=== PATIENT | male | born 1965 | race Two or more races ===

== ENCOUNTER 2020-02-06 01:23 | Emergency (ER) | payer OTHER ==
[~2020-02-06] VITALS: Ht 177.8 cm; Wt 81.6 kg
[2020-02-06 01:30] VITALS: BP 139/92
[2020-02-06] MEDS ORDERED: XIFAXAN550 MG ORAL (01:37)
[2020-02-06] MEDS ORDERED: ZOFRAN4 M1 ORAL (01:37)
[2020-02-06] MEDS ORDERED: NEXIUM I.V.40 MG IV (01:37)
[2020-02-06] MEDS ORDERED: PROPRANOLOL HCL20 MG ORAL (01:37)
[2020-02-06] MEDS ORDERED: LACTULOSE10 GM/153 PO (01:37)
[2020-02-06] MEDS ORDERED: SPIRONOLACTONE100 MG ORAL (01:37)
[2020-02-06] MEDS ORDERED: CALCIUM CARBON500 M1 PO (01:37)
[2020-02-06] MEDS ORDERED: FUROSEMIDE20 M1 ORAL (01:37)
[2020-02-06] MEDS ORDERED: MAGNESIUM OXID400 M1 ORAL (01:37)
--- NOTE | 2020-02-06 01:44 | Emergency Room Report ---
History of Present Illness General Chief Complaint: Altered Mental Status Source: Family Member, EMS Present Illness HPI This is a 54-year-old male with a history of end-stage liver disease on the transplant list at [facility]. He also has a history of diabetes. He presents with chief complaint of altered mental status. Per his brother, patient went to the restroom and became unresponsive. He was diaphoretic. He opens his eyes but was not responsive. His brother called 911. His blood sugar rest are very low. EMS gave him an amp of D10. He is more responsive but still confused. This happened before. No focal deficit. Patient takes Lantus 20 units at night and NovoLog 3 times a day. He does have nausea but no vomiting. His brother said he ate normally today. He does have weight loss however. Allergies: Coded Allergies: No Known Allergies (Unverified , 02/06/20) COVID-19 Screening Contact w/high risk pt: No Recent Travel to affected area: No Experienced COVID-19 symptoms?: No COVID-19 Testing performed [employer]Y HELPER: No Patient History Past Medical History: see triage record, old chart reviewed Past Surgical History: other Pertinent Family History: none Social History: Reports: alcohol use - History of Immunizations: other Reviewed Nursing Documentation: PMH: Agreed; PSxH: Agreed Nursing Documentation-PMH Hx Hypertension: Yes Hx Diabetes: Yes Review of Systems Eye: Denies: eye pain, blurred vision ENT: Denies: ear pain, nose congestion, throat swelling Respiratory: Denies: cough, shortness of breath Cardiovascular: Denies: chest pain, palpitations Gastrointestinal: Denies: abdominal pain, diarrhea, nausea, vomiting Musculoskeletal: Denies: back pain, joint pain Skin: Denies: rash Neurological: Denies: headache, numbness Endocrine: Denies: increased thirst, increased urine Hematologic/Lymphatic: Denies: easy bruising All Other Systems: negative except mentioned in HPI Physical Exam Vital Signs Date Time Temp Pulse Resp B/P (MAP) Pulse Ox O2 Delivery O2 Flow Rate FiO2 02/06/20 01:24 99.0 41 16 139/92 (108) 99 Room Air Vitals with bradycardia Sp02 EP Interpretation: reviewed, normal General Appearance: mild distress, Chronically Ill Head: normocephalic, atraumatic Eyes: bilateral eye PERRL, bilateral eye EOMI, bilateral eye scleral icterus ENT: hearing grossly normal, normal pharynx Neck: full range of motion, supple, no meningismus Respiratory: chest non-tender, lungs clear, normal breath sounds Cardiovascular #1: regular rate, rhythm, no murmur Gastrointestinal: normal bowel sounds, non tender, no mass, no organomegaly, no bruit, non-distended Musculoskeletal: back normal, normal range of motion Psychiatric: mood/affect normal Skin: jaundice Medical Decision Making Diagnostic Impression: Primary Impression: Hypoglycemia Additional Impressions: Acute hepatic encephalopathy Bradycardia ER Course This is a 54-year-old male with history of end-stage liver disease currently waiting for liver transplant. He presents with altered mental status secondary to hypoglycemia. Blood glucose better after D50. Is remained stable. His heart rate initially was very bradycardic but now in the 50s to 60s. Labs appear to be at baseline. CT scans negative. Per his brother, he is back to baseline. Initially I was going to transfer him to [facility] because of his liver transplant status. We actually spoke with the liver coordinator. Because patient is back to baseline, the brother want to take him home and if things worsen then he will drive directly to [facility]. EKG Diagnostic Results Rate: bradycardiac Rhythm: NSR ST Segments: no acute changes Rhythm Strip Diag. Results EP Interpretation: yes Rate: 51 Rhythm: NSR, no PVC's, no ectopy Chest X-Ray Diagnostic Results Chest X-Ray Diagnostic Results : Chest X-Ray Ordered: Yes # of Views/Limited/Complete: 1 View Indication: Shortness of Breath EP Interpretation: Yes Interpretation: no consolidation, no effusion, no pneumothorax, no acute cardiopulmonary disease Impression: No acute disease Electronically Signed by: Stanley Toledo MD CT/MRI/US Diagnostic Results CT/MRI/US Diagnostic Results : Imaging Test Ordered: CT head Impression Read by radiologist. Negative. Last Vital Signs Date Time Temp Pulse Resp B/P (MAP) Pulse Ox O2 Delivery O2 Flow Rate FiO2 02/06/20 01:24 99.0 41 16 139/92 (108) 99 Room Air Status: improved Disposition: HOME, SELF-CARE Condition: Stable Additional Instructions: Hold propranolol for today. Cut down Lantus at night to 10 units. Follow-up with your doctor in 1 to 2 days if not better. Return if symptoms worsen. Stanley Toledo MD Feb 06, 2020 01:44
[2020-02-06 01:46] LABS: HEMATOCRIT 28.5 % (42.0-52.0); MEAN CORPUSCULAR VOLUME 84 FL (80-99); PLATELET COUNT 66 K/UL (150-450); RED BLOOD COUNT 3.37 M/UL (4.70-6.10); RED CELL DISTRIBUTION WIDTH 12.5 % (11.6-14.8); WHITE BLOOD COUNT 4.5 K/UL (4.8-10.8)
[2020-02-06 01:50] VITALS: BP 130/65
[2020-02-06 02:17] LABS: ALANINE AMINOTRANSFERASE 61 U/L (12-78); ALBUMIN 2.6 G/DL (3.4-5.0); ALBUMIN/GLOBULIN RATIO 0.6 (1.0-2.7); ALKALINE PHOSPHATASE 305 U/L (46-116); ANION GAP 6 mmol/L (5-15); ASPARTATE AMINO TRANSFERASE 90 U/L (15-37); BLOOD UREA NITROGEN 27 mg/dL (7-18); CALCIUM 8.6 MG/DL (8.5-10.1); CARBON DIOXIDE 28 MMOL/L (21-32); CHLORIDE 101 MMOL/L (98-107); CREATININE 1.4 MG/DL (0.55-1.30); POTASSIUM 3.7 MMOL/L (3.5-5.1); SODIUM 135 MMOL/L (136-145)
[2020-02-06 02:19] LABS: BILIRUBIN,DIRECT 2.6 MG/DL (0.0-0.3)
[2020-02-06 02:29] LABS: APPEARANCE,URINE CLEAR; BILIRUBIN, URINE NEGATIVE (NEGATIVE); GLUCOSE, URINE (UA) 1+ (NEGATIVE); KETONES,URINE NEGATIVE (NEGATIVE); LEUKOCYTE ESTERASE ,URINE 1+ (NEGATIVE); NITRITE,URINE NEGATIVE (NEGATIVE); PH,URINE 7 (4.5-8.0); PROTEIN,URINE NEGATIVE (NEGATIVE); UROBILINOGEN,URINE NORMAL MG/DL (0.0-1.0)
[2020-02-06 02:35] LABS: COLOR,URINE YELLOW
[2020-02-06 03:30] VITALS: BP 117/75
--- NOTE | 2020-02-06 03:44 | Diagnostic Imaging Report ---
EXAM: CT Head Without Intravenous Contrast CLINICAL HISTORY: AMS TECHNIQUE: Axial computed tomography images of the head/brain without intravenous contrast. CTDI is 53.4 mGy and DLP is 1285.9 mGy-cm. One or more of the following dose reduction techniques were used: automated exposure control, adjustment of the mA and/or kV according to patient size, use of iterative reconstruction technique. Coronal reformatted images were created and reviewed. COMPARISON: No relevant prior studies available. FINDINGS: Brain: Mild chronic small vessel ischemic change. No hemorrhage. No mass effect or edema. No evolving territorial infarction. Ventricles: Unremarkable. No ventriculomegaly. Bones/joints: Unremarkable. No acute fracture. Soft tissues: Unremarkable. Sinuses: Unremarkable as visualized. No acute sinusitis. Mastoid air cells: Unremarkable as visualized. No mastoid effusion. IMPRESSION: Mild chronic small vessel ischemic change. No acute intracranial abnormality.
[2020-02-06 04:00] VITALS: BP 110/64
[2020-02-06 04:40] VITALS: BP 115/67
[2020-02-06 05:20] VITALS: BP 113/69
--- NOTE | 2020-02-06 11:06 | Diagnostic Imaging Report ---
Indication: Hours of breath Technique: One view of the chest Comparison: none Findings: The heart is upper limits normal in size. There is a small left pleural effusion. Lungs and pleural spaces are otherwise clear. Impression: Small left pleural effusion. No acute process otherwise
== END 2020-02-06 05:20 | disposition home or self-care (01) ==
LOC: EDBD 01:23 → EMR 02:04
DX: E11.649 Type 2 diabetes mellitus with hypoglycemia without coma (principal); R00.1 Bradycardia, unspecified; K72.00 Acute and subacute hepatic failure without coma; Z79.84 Long term (current) use of oral hypoglycemic drugs; K72.90 Hepatic failure, unspecified without coma
CPT/HCPCS: 36415; 70450; 71045; 80053; 81003; 82140; 82248; 82962; 83690; 84484; 85025; 87081; 93005; 96374; 99284